=== PATIENT | male | born 1970 | race Caucasian/White ===

== ENCOUNTER 2017-03-10 14:37 | Emergency (ER) | payer OTHER ==
[2017-03-10] MEDS ORDERED: Famotidine/PF 20 mg/2ml Vial ONE (14:53)
[2017-03-10] MEDS ORDERED: Ondansetron HCl/PF 4 MG/2 ML Vial ONE (14:53)
[2017-03-10 15:16] LABS: #Basophils 0.1 thou/uL (0.0-0.2); #Eosinphils 0.1 thou/uL (0.0-0.7); #Monocytes 0.7 thou/uL (0.11-0.59); #Neutrophils 3.2 thou/uL (1.40-6.50); %Basophils 1.5 % (0.0-1.0); %Eosinophils 2.1 % (0.0-10.0); %Lymphocytes 32.2 % (21.0-51.0); %Monocytes 11.1 % (0.0-10.0); Hematocrit 46.8 % (42.0-52.0); Mean Platelet Volume 6.6 fL (7.4-10.4); Red Blood Cell (RBC) Count 5.18 mill/uL (4.70-6.10); White Blood Cell (WBC) Count 6.1 thou/uL (4.8-10.8)
[2017-03-10 15:21] LABS: ALT (SGPT) 46 U/L (8-55); AST (SGOT) 54 U/L (5-34); Alkaline Phosphatase 63 U/L (40-150); Anion Gap 15 mmol/L (10-20); BUN (Urea Nitrogen) 6 mg/dL (8.9-20.6); Bilirubin, Total 0.8 mg/dL (0.2-1.2); Calc. Creatinine Clearance 0 mL/min (70-130); Calcium 9.9 mg/dL (7.8-10.44); Carbon Dioxide 26 mmol/L (22-29); Chloride 101 mmol/L (98-107); Estimated GFR-MDRD Greater than 90; Globulin 3.2 g/dL (2.4-3.5); Lipase 81 U/L (8-78); Protein, Total 7.3 g/dL (6.0-8.3)
[2017-03-10 15:24] LABS: Troponin I Less than 0.010 ng/mL (< 0.028)
[2017-03-10] MEDS ORDERED: Mag-Al Plus 1200 MG/1200 MG/120 MG/30 ML UDCUP ONE (15:25)
[2017-03-10] MEDS ORDERED: Lidocaine Viscous Sol 2% 15 ml UD Cup ONE (15:25)
--- NOTE | 2017-03-10 15:37 | RAD ---
TWO VIEWS OF THE CHEST: 03/10/2017 HISTORY: Sinus pain. Cough. Headache. Back pain. COMPARISON: None. FINDINGS: There is postoperative hardware overlying the lower cervical spine. There is no pneumothorax, pleur al fluid, focal consolidation, or alveolar edema. IMPRESSION: No acute findings. POS: [facility]
--- NOTE | 2017-05-01 11:38 | EKG ---
Test Reason : Blood Pressure : / mmHG Vent. Rate : 080 BPM Atrial Rate : 080 BPM P-R Int : 160 ms QRS Dur : 094 ms QT Int : 362 ms P-R-T Axes : 047 -09 014 degrees QTc Int : 417 ms Normal sinus rhythm Possible Left atrial enlargement Low voltage QRS Borderline ECG Confirmed by MICHAEL HAYNES D.O. ([id number]), magazine editor LISA HURD ([id number]) on 05/01/2017 11:38:21 AM Referred By: [place] Confirmed By:MICHAEL HAYNES D.O.
== END 2017-03-10 16:39 | disposition home or self-care (01) ==
LOC: SCSER 14:37
DX: A08.4 Viral intestinal infection, unspecified (principal)
CPT/HCPCS: 71020; 80053; 82553; 83690; 84484; 85025; 93005; 96361; 96374; 96375; J2405; S0028

== ENCOUNTER 2018-11-24 14:08 | Outpatient (CLI) | payer BC, OTHER ==
--- NOTE | 2018-11-24 16:11 | MRI ---
MRI OF THE LUMBAR SPINE WITHOUT CONTRAST: 11/24/18 HISTORY: M54.16, lumbar radiculopathy. COMPARISON: None. FINDINGS: The aortic contour is nonaneurysmal. No retroperitoneal or periaortic adenopathy. No marrow infiltrat amie process. The conus medullaris terminates near the superior end plate at L1. There is extensive red marrow throughout the lumbar spine. No fluid signal abnormality of the marrow on the T2 weighted imaging sequence. There is intervertebral hemangioma of L3 extending into the left pedicle. Levels are as follows: L1-2: Moderate degenerative disc space height loss. Circumferential disc osteophyte complex. Mild eff acement of the ventral CSF space. Spinal canal measures approximately 9 mm. No significant spinal can al or neural foraminal narrowing. L2-3: Mild degenerative disc space height loss. Low grade circumferential disc bulge. Mild increased posterior epidural fat. Spinal canal measures approximately 8 mm. Mild bilateral neural foraminal ольга rowing. L3-4: Mild disc desiccation. Broad based posterior disc bulge. Mild facet arthropathy. Moderate bilat eral neural foraminal narrowing. Spinal canal measures approximately 6 mm. L4-5: Circumferential disc osteophyte complex. Mild facet arthropathy. There is crowding of the nerve roots with narrowing of the spinal canal to approximately 4 mm due to the broad based posterior disc osteophyte complex. Moderate to severe right and moderate left neural foraminal narrowing. L5-S1: Circumferential disc osteophyte complex greatest in the subforaminal zones. Moderate hypertro phic facet changes. Moderate to severe bilateral neural foraminal narrowing with abutment of the exit ing and traversing nerve roots bilaterally. IMPRESSION: Multilevel spondylosis with neural foraminal and spinal canal narrowing. POS: [facility]
== END 2018-11-24 14:09 | disposition home or self-care (01) ==
LOC: TBSIIMAG 14:08
PROVIDERS: ATTEND Family Medicine
DX: M47.26 Other spondylosis with radiculopathy, lumbar region (principal); M48.061 Spinal stenosis, lumbar region without neurogenic claudication
CPT/HCPCS: 72148

== ENCOUNTER 2018-11-28 17:52 | Emergency (ER) | payer BC, OTHER ==
[2018-11-28] MEDS ORDERED: Morphine 10 MG/ML VIAL ONE ×2 (18:15→19:24)
== END 2018-11-28 19:45 | disposition home or self-care (01) ==
LOC: SCSER 17:52
DX: M54.5 Low back pain (principal)
CPT/HCPCS: 96372; 99283; J2270

== ENCOUNTER 2018-11-29 17:50 | Emergency (ER) | payer BC, OTHER ==
[2018-11-29] MEDS ORDERED: Morphine 10 MG/ML VIAL ONE (18:38)
[2018-11-29] MEDS ORDERED: Ketorolac Tromethamine 60 MG/2 ML VIAL ONE (18:38)
== END 2018-11-29 18:55 | disposition home or self-care (01) ==
LOC: SCSER 17:50
DX: M54.5 Low back pain (principal)
CPT/HCPCS: 96372; 99283; J1885; J2270

== ENCOUNTER 2019-03-08 11:41 | Outpatient (CLI) | payer BC, OTHER ==
--- NOTE | 2019-03-08 13:55 | RAD ---
RIGHT WRIST FOUR VIEWS: HISTORY: Right wrist pain. FINDINGS: The scaphoid waist and ulnar styloid are intact. Mild osteophytosis at the first carpometacarpal join t. There is subtle cortical thickening along the posterior margin of the triquetral on the lateral view. Mild overlying soft tissue swelling. No fractures are apparent. IMPRESSION: 1. Subtle cortical thickening along the posterior triquetrum. Possible soft tissue swelling. This has the appearance of an old injury. No acute osseous abnormalities are demonstrated. 2. Mild osteoarthritic changes, first carpometacarpal joint. POS: [facility]
== END 2019-03-08 11:42 | disposition home or self-care (01) ==
LOC: SCSRAD 11:41
PROVIDERS: ATTEND Family Medicine
DX: M25.531 Pain in right wrist (principal); M18.11 Unilateral primary osteoarthritis of first carpometacarpal joint, right hand

== ENCOUNTER 2019-09-11 06:40 | Outpatient (CLI) | payer BC, OTHER ==
[2019-09-11 10:24] LABS: #Eosinphils 0.4 thou/uL (0.0-0.7); #Lymphocytes 1.7 thou/uL (1.20-3.40); #Monocytes 0.8 thou/uL (0.11-0.59); #Neutrophils 5.3 thou/uL (1.40-6.50); %Basophils 0.5 % (0.0-1.0); %Eosinophils 4.5 % (0.0-10.0); %Lymphocytes 20.5 % (21.0-51.0); %Monocytes 9.8 % (0.0-10.0); %Neutrophils 64.8 % (42.0-75.0); Hemoglobin 15.6 g/dL (14.0-18.0); Mean Corpuscular HGB CONC 34.7 g/dL (32.0-36.0); Mean Corpuscular Hemoglobin 31.7 pg (27.0-31.0); Mean Corpuscular Volume 91.2 fL (78.0-98.0); Mean Platelet Volume 7.7 fL (7.4-10.4); Platelet Count 235 thou/uL (130-400); RBC Distribution Width 11.1 % (11.5-14.5); Red Blood Cell (RBC) Count 4.92 mill/uL (4.70-6.10); White Blood Cell (WBC) Count 8.1 thou/uL (4.8-10.8)
[2019-09-11 18:45] LABS: SARS-CoV-2 MS2 Positive; SARS-CoV-2 N Gene Negative; SARS-CoV-2 S Gene Negative; SARS-CoV-2 orf1ab Negative
== END 2019-09-11 06:41 | disposition home or self-care (01) ==
LOC: LABBT 06:40
PROVIDERS: ATTEND Orthopaedic Surgery Hand Surgery
DX: Z01.818 Encounter for other preprocedural examination (principal); Z11.59 Encounter for screening for other viral diseases; S63.8X1A Sprain of other part of right wrist and hand, initial encounter
CPT/HCPCS: 85025; 87635; 93005; 93010; U0003

== ENCOUNTER 2019-09-15 05:56 | Day surgery (SDC) | payer BC, OTHER ==
[2019-09-11 09:11] VITALS: BMI 29.7
[2019-09-15] MEDS ORDERED: Fentanyl 100 MCG/2 ML VIAL ONE ×5 (06:32→13:25)
[2019-09-15] MEDS ORDERED: Midazolam HCl 2 mg/2 ml Vial ONE (06:32)
[2019-09-15] MEDS ORDERED: EPINEPHrine 1 MG/ML AMP ONE (06:51)
[2019-09-15] MEDS ORDERED: Bupivacaine PF 0.5% 30 ML VIAL ONE (06:51)
[2019-09-15] MEDS ORDERED: Bacitracin Zinc Ointment 30 gm TUBE ONE (06:51)
[2019-09-15] MEDS ORDERED: Rocuronium Bromide 50 MG/5 ML VIAL ONE (10:00)
[2019-09-15] MEDS ORDERED: Dexamethasone 20 MG/5 ML VIAL ONE (11:22)
[2019-09-15] MEDS ORDERED: Rocuronium Bromide 10 MG/ML (10ML VIAL) ONE (11:22)
[2019-09-15] MEDS ORDERED: Lidocaine 1% PF 5 ML VIAL ONE (11:22)
[2019-09-15] MEDS ORDERED: PHENYLEPHRINE-NS 100 MCG/ML 10 ML SYRINGE ONE (11:22)
[2019-09-15] MEDS ORDERED: PROPOFOL 200 MG/20 ML VIAL ONE (11:22)
[2019-09-15] MEDS ORDERED: Ropivacaine 0.5% HCl/PF (150 MG/30 ML VIAL) ONE ×2 (11:22→13:33)
[2019-09-15] MEDS ORDERED: EPHEDRINE 25 MG/5 ML SYRINGE ONE (11:22)
[2019-09-15] MEDS ORDERED: Ketorolac Tromethamine 30 MG/ML VIAL ONE ×2 (11:22→14:06)
[2019-09-15] MEDS ORDERED: Succinylcholine Chloride 20 MG/ML 10 ml SYRINGE FS ONE (11:22)
[2019-09-15] MEDS ORDERED: Metoclopramide HCl 10 MG/2 ML VIAL ONE (11:22)
[2019-09-15] MEDS ORDERED: Ondansetron PF 4 MG/2 ML Vial ONE (11:22)
--- NOTE | 2019-09-15 12:19 | RAD ---
Radiograph right wrist 3 views: DATE: 09/15/2019 Time: 10:39 AM HISTORY: 49-year-old male with scapholunate ligament tear. FINDINGS: A total of 6 fluoroscopic spot images obtained with C-arm in the OR. Initial image demonstrates sligh t widening of scapholunate interval. Subsequent images demonstrate a total of 4 K wires overlapping carpal bones, with some overlapping hamate, lunate, and scaphoid. 2 tendon anchors are present at the ulnar side of the scaphoid. The last 2 images demonstrate removal of all but 2 of the K wires. IMPRESSION: Ongoing surgical repair of the scapholunate ligament tear.
[2019-09-15] MEDS ORDERED: Promethazine HCl 25 MG/ML VIAL IM PRN (14:13)
[2019-09-15] MEDS ORDERED: Ropivacaine 0.2% 550 ML 550 ML NERVE BLCK SCH (14:13)
[2019-09-15] MEDS ORDERED: Zolpidem Tartrate 5 MG TAB PO PRN (14:13)
[2019-09-15] MEDS ORDERED: Acetaminophen 325 MG TAB PO PRN (14:13)
[2019-09-15] MEDS ORDERED: Ondansetron PF 4 MG/2 ML Vial IVP PRN (14:13)
[2019-09-15] MEDS ORDERED: Fentanyl 100 MCG/2 ML VIAL IV PRN (14:15)
--- NOTE | 2019-09-18 11:54 | OP ---
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 POSTOPERATIVE DIAGNOSES: 1. 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 2. Synovitis, moderate, radiocarpal joint. FINDINGS INTRAOPERATIVE: Also drive-through sign positive where the scope could be driven into the midcarpal joint because of the instability and complete loss of continuity between the scaphoid and lunate. PROCEDURES PERFORMED: 1. Right wrist arthroscopic synovectomy. 2. Open carpal reduction. 3. C-arm supervision. 4. Right flexor carpi radialis transfer for scapholunate interosseous membrane reconstruction. TOURNIQUET TIME: 126 minutes. ESTIMATED BLOOD LOSS: 30 mL. DESCRIPTION OF PROCEDURE: After successful general endotracheal anesthesia, the limb was prepped and draped. The patient then had the time-out done appropriately. The wrist was then placed in a standard inline traction for wrist arthroscopy, and we established the 3-4, 8U, and 8R portals. Through these portals, we obtained panoramic view of the wrist and first found there was no cartilage tear, no chondral lesion of the triquetrum, lunate, or the olecranon, and that we should continue with our present plan. There was marked synovitis. We performed synovectomy alternating between the working portals of the and the 3-4. The patient then had the wrist arthroscope removed after we confirmed the extent of damage. We then exsanguinated the limb, inflated the tourniquet, and outlined 2 incisions, one as an approach to the scaphoid over the bed of the FCR and another a zigzag approach to the carpal bones and the distal retinaculum. We released the retinaculum, spared the third and fourth dorsal compartments, and went between them with a retractor to visualize wrist capsule. We then made a radial-based flap, moved it outward with a retractor, and then we were prepared to visualize the bones. We saw a remnant still available off the lunate to attach the scaphoid, so we dug a trough in 2 spots at least a centimeter long. The patient trough prepared in the scaphoid except for the very dorsal aspect where it was a reverse-type avulsion, and we prepared the trough in the lunate for advancement of remnant of scapholunate ligament back into the trough on the dorsal lunate. We prepared the trough. We used to control the bones. We then used C-arm, brought on the guidewire from the 3.5 cannulated screw set. We passed this guidewire, and then turned attention to volar side where we made a standard approach to the scaphoid through the bed of the flexor carpi radialis into the volar wrist capsule, identified the scaphoid. We then made sure that the graft was part of the appropriate orientation, and this was confirmed. Once we had done this, we had even appropriate sagittal angle of approximately 30 degrees angle from distal palmar to proximal dorsal, and we avoided any chondral surface that had contact on the scaphoid. We did a drilling with a 2.5 drill bit and then a 3.5 drill bit to establish a large enough hole to easily pass a graft. We then harvested the radial one-half of the flexor carpi radialis tendon as far back a 15-cm segment, passed it from palmar to dorsal to the wrist joint. At this point, we then put K-wires into the scaphoid x2, reduced the carpus to include closing the scapholunate gap, made a hole where the passed in the capsular remnants to include the and passed the graft through here. It was pulled tight after we had pinned the scaphoid to the lunate and scaphoid to the carpal bone. The reconstruction lied right over the dorsal scapholunate ligament now, and then we tied it to the hole we had just made using heavy 4-0 Prolene multiple mattress suture passes. Now, the tourniquet was deflated, just after we tied the anchor sutures, which had excellent apposition and easily brought the remnant of the scapholunate ligament (refreshed) 1 mm to be brought into trough and bone with anchors aligned. We now had excellent reduction from the sagittal plane. We now could see that we advanced the primary sutures into the scapholunate remnant and the graft, and we tied it on itself slightly radial to the scapholunate ligament. We had excellent reduction of previous dorsal intercalated instability to almost 0 lateral scapholunate angle. There was no crepitus. We released the tourniquet. We now had achieved carpal reduction and flexor carpi radialis transfer for scapholunate osseous membrane reconstruction. We closed the joint capsule with a running suture. The retinaculum was now closed with interrupted [id number] 2-0 Vicryl, subcutaneous closure with 4-0 Monocryl, and the skin was reapproximated with 4-0 nylon interrupted mattress fashion. Bulky dressing was applied, and the patient left the operating room without evidence of anesthetic or operative complication. Job ID: [id number]
== END 2019-09-15 15:40 | disposition home or self-care (01) ==
LOC: SDC 05:56
PROVIDERS: ATTEND Orthopaedic Surgery Hand Surgery
PROC: 3E0T3BZ Introduction of Anesthetic Agent into Peripheral Nerves and Plexi, Percutaneous Approach (ICD-10-PCS; principal; 2019-09-15)
PROC: 0LX50ZZ Transfer Right Lower Arm and Wrist Tendon, Open Approach (ICD-10-PCS; principal; 2019-09-15)
PROC: 0RBN4ZZ Excision of Right Wrist Joint, Percutaneous Endoscopic Approach (ICD-10-PCS; principal; 2019-09-15)
DX: S63.511A Sprain of carpal joint of right wrist, initial encounter (principal); M25.331 Other instability, right wrist; M65.831 Other synovitis and tenosynovitis, right forearm; G89.18 Other acute postprocedural pain; I10 Essential (primary) hypertension; G89.29 Other chronic pain; M54.5 Low back pain; Z87.891 Personal history of nicotine dependence; Z79.899 Other long term (current) drug therapy; Z98.1 Arthrodesis status; X58.XXXA Exposure to other specified factors, initial encounter
CPT/HCPCS: 76000; A4306; C1713; C1769; J0171; J0690; J1100; J1885; J2001; J2250; J2405; J2704; J2765; J2795; J3010; J3370; S0020

== ENCOUNTER 2019-11-10 05:50 | Outpatient (CLI) | payer BC, OTHER ==
[2019-11-11 12:08] LABS: SARS-CoV-2 MS2 Positive; SARS-CoV-2 N Gene Negative; SARS-CoV-2 S Gene Negative; SARS-CoV-2 orf1ab Negative
== END 2019-11-10 05:51 | disposition home or self-care (01) ==
LOC: LABBT 05:50
PROVIDERS: ATTEND Orthopaedic Surgery Hand Surgery
DX: Z01.812 Encounter for preprocedural laboratory examination (principal); Z11.59 Encounter for screening for other viral diseases; S63.8X1A Sprain of other part of right wrist and hand, initial encounter
CPT/HCPCS: 87635; U0003

== ENCOUNTER 2019-11-14 10:26 | Day surgery (SDC) | payer BC, OTHER ==
[2019-11-07 09:25] VITALS: BMI 29.7
[2019-11-14] MEDS ORDERED: PROPOFOL 200 MG/20 ML VIAL ONE (12:10)
[2019-11-14] MEDS ORDERED: Ketorolac Tromethamine 30 MG/ML VIAL ONE (12:10)
[2019-11-14] MEDS ORDERED: Dexamethasone 20 MG/5 ML VIAL ONE (12:10)
[2019-11-14] MEDS ORDERED: Ondansetron PF 4 MG/2 ML Vial ONE (12:10)
[2019-11-14] MEDS ORDERED: Lidocaine 1% PF 5 ML VIAL ONE (12:10)
[2019-11-14] MEDS ORDERED: Bupivacaine PF 0.5% 30 ML VIAL ONE (15:25)
[2019-11-14] MEDS ORDERED: Bacitracin Zinc Ointment 30 gm TUBE ONE (15:25)
[2019-11-14] MEDS ORDERED: Sodium Chloride 0.9% 10 ML ONE (15:25)
[2019-11-14] MEDS ORDERED: Fentanyl 100 MCG/2 ML VIAL ONE (15:37)
--- NOTE | 2019-11-14 16:43 | RAD ---
Exam: Intraoperative fluoroscopy HISTORY: Right wrist hardware removal Exposure: 0.16 mCi; 9 seconds FINDINGS: Intraoperative fluoroscopy demonstrates hardware involving the proximal carpal row. IMPRESSION: Fluoroscopy as above.
[2019-11-14] MEDS ORDERED: HYDROcodone/Acetaminophen 5/325 mg Tablet ONE (17:20)
--- NOTE | 2019-11-14 18:25 | OP ---
DATE OF PROCEDURE: 11/14/2019 PREOPERATIVE DIAGNOSES: Right wrist painful deep wires. POSTOPERATIVE DIAGNOSIS: Right scapholunate wire, broke with 4 mm inside the scaphoid and 6 mm inside the lunate, and after removal of the scapholunate residual wire and the entire scaphoid capitate wire, there was no motion of the scapholunate joint, and so we felt that removal of the wire, which we required complete dismantling of the repair, was not indicated at this time. PROCEDURES PERFORMED: 1. Removal of deep wire scapholunate. 2. C-arm supervision. INDICATIONS: The patient is now greater than 9 weeks since scapholunate reconstruction using modified Brunelli technique with FCR tendon. He had complained of stiffness and last radiographs taken in clinic just a week before procedure showed no wire migration or injury. DESCRIPTION OF PROCEDURE: After successful general endotracheal anesthesia, C-arm was brought in the field. Here, we noticed that the patient's wire was broken. At that point, passively, the patient had only 15 degrees palmar flexion and 40 degrees dorsiflexion. Under the C-arm, we made a small 5-mm incision, carried through skin and subcutaneous tissue. We removed the wire without complication and obtained hemostasis with tourniquet decreased. We decided again as stated above not to destroy the repair or remove this wires. It did not dislodge intra-articular with dorsiflexion, palmar flexion, or ulnar deviation or supination pronation. Thus, it was not considered to be a detriment for healing or chondral status. The patient then had the incision closed after hemostasis obtained with tourniquet deflated with 3 interrupted 5-0 nylon. Small dressing was applied along the Alejandro wrap. He was instructed to go to therapy and use it as tolerated and follow up with us in 3 weeks for suture removal. Job ID: [id number]
== END 2019-11-14 18:20 | disposition home or self-care (01) ==
LOC: SDC 10:26
PROVIDERS: ATTEND Orthopaedic Surgery Hand Surgery
PROC: 0RPN04Z Removal of Internal Fixation Device from Right Wrist Joint, Open Approach (ICD-10-PCS; principal; 2019-11-14)
DX: T84.84XA Pain due to internal orthopedic prosthetic devices, implants and grafts, initial encounter (principal); Z79.899 Other long term (current) drug therapy; Z87.891 Personal history of nicotine dependence
CPT/HCPCS: 76000; J0690; J1100; J1885; J2001; J2405; J2704; J3010; J3490; S0020

== ENCOUNTER 2021-03-02 21:33 | Emergency (ER) | payer OTHER, BC | END 2021-03-02 22:36 | disposition home or self-care (01) | LOC: EEVIPCON 21:33 → ERS 21:33 | DX: S80.02XA Contusion of left knee, initial encounter (principal); I10 Essential (primary) hypertension; Z79.01 Long term (current) use of anticoagulants; Z79.899 Other long term (current) drug therapy; Z87.891 Personal history of nicotine dependence; W01.0XXA Fall on same level from slipping, tripping and stumbling without subsequent striking against object, initial encounter ==